=== PATIENT | female | born 1970 | race Caucasian/White ===

== ENCOUNTER 2017-01-15 17:17 | Emergency (ER) | payer OTHER ==
[~2017-01-15] VITALS: Ht 157.5 cm; Wt 63.5 kg
[2017-01-15 17:17] VITALS: BP_SYST 102
--- NOTE | 2017-01-15 17:17 | NUR ---
Patient triaged and placed in waiting room. VSS and patient appears in no acute distress at this time. Accompanied by FRIEND, awaiting available bed, and MD notified of need for MSE.
--- NOTE | 2017-01-15 18:40 | NUR ---
BROUGHT BACK TO BED #4 AND REPORT GIVEN TO BERNARDA
--- NOTE | 2017-01-15 18:50 | NUR ---
Patient to ER via triage with c/o left sided back pain, increasing in severity over the last several days. Patient denies any numbness/tingling or weakness of lower extremities. No incontinence reported. Patient reports that she was seen at an outside hospital([facility]) and was given given a steroid injection which patient reports did not help with the pain. Patient rates pain at 8/10-Awaiting evaluation by ER MD. Will continue to observe and assess.
--- NOTE | 2017-01-15 18:56 | NUR ---
DR BIRCH AT BEDSIDE FOR EVALUATION
[2017-01-15] MEDS ORDERED: KETOROLAC TROMETHAMINE 60 MG/2 ML VIAL IM ONE (19:00)
[2017-01-15 19:45] VITALS: BP_SYST 100
--- NOTE | 2017-01-15 19:45 | NUR ---
Patient given written and verbal discharge instructions and verbalizes understanding. ER MD discussed with patient the results and treatment provided. Patient in stable condition. ID arm band removed. Rx of Motrin, [place] given. Patient educated on pain management and to follow up with PMD. Pain Scale 3. Opportunity for questions provided and answered. Patient left ER ambulating without difficulty with slow, steady gait with friend at bedside. Patient is in nad. No adverse reaction noted to medication.
== END 2017-01-15 19:45 | disposition home or self-care (01) ==
LOC: SED 17:17
DX: M54.5 Low back pain (principal); E78.00 Pure hypercholesterolemia, unspecified; Z90.49 Acquired absence of other specified parts of digestive tract; Z90.710 Acquired absence of both cervix and uterus
CPT/HCPCS: 74000; 96372; 99283; J1885

== ENCOUNTER 2018-10-12 10:29 | Emergency (ER) | payer MEDICAID, OTHER ==
[~2018-10-12] VITALS: Ht 160 cm; Wt 59.0 kg
[2018-10-12 10:30] VITALS: BP_SYST 104
[2018-10-12] MEDS ORDERED: MAG HYDROX/AL HYDROX/SIMETH 30 ML, DICYCLOMINE HCL 20 MG, LIDOCAINE VISCOUS 2% 15ML (PO... PO ONE ×3 (11:00)
[2018-10-12 11:28] LABS: BASOPHILS % (AUTO) 0.3 % (0.0-2.0); EOSINOPHILS # (AUTO) 0.1 K/uL (0.0-0.4); EOSINOPHILS % (AUTO) 1.9 % (0.0-4.0); HEMATOCRIT 41.4 % (36-48); HEMOGLOBIN 14.3 g/dL (12.0-16.0); LYMPHOCYTES # (AUTO) 2.6 K/uL (1.0-5.5); LYMPHOCYTES % (AUTO) 49.7 % (20.5-51.5); MEAN CORPUSCULAR HEMOGLOBIN 33 pg (27-31); MEAN CORPUSCULAR HGB CONC 35 % (32-36); MEAN CORPUSCULAR VOLUME 97 fL (79.0-98.0); MONOCYTES # (AUTO) 0.3 K/uL (0.0-1.0); MONOCYTES % (AUTO) 6.2 % (1.7-9.3); NEUTROPHILS # (AUTO) 2.2 K/uL (1.8-7.7); NEUTROPHILS % (AUTO) 41.9 % (40.0-70.0); PLATELET COUNT (AUTO) 168 K/uL (130-430); RED BLOOD CELL COUNT(AUTO) 4.28 MIL/uL (4.2-6.2); RED CELL DISTRIBUTION WIDTH 13.4 % (9.0-15.0); WHITE BLOOD COUNT (AUTO) 5.2 K/uL (4.8-10.8)
[2018-10-12 12:08] LABS: CALCIUM 9.7 mg/dL (8.4-11.0); CREATININE 0.77 mg/dL (0.55-1.30); POTASSIUM 4.2 mmol/L (3.5-5.1)
[2018-10-12 12:13] LABS: TOTAL BILIRUBIN 0.3 mg/dL (0.0-1.0)
[2018-10-12] MEDS ORDERED: HYDROcodone/ACETAMIN 5-325 MG TAB (NORCO/ VICODIN) PO ONE (12:15)
[2018-10-12 12:54] VITALS: BP_SYST 115
== END 2018-10-12 12:54 | disposition home or self-care (01) ==
LOC: SED 10:29
DX: K52.9 Noninfective gastroenteritis and colitis, unspecified (principal); E78.5 Hyperlipidemia, unspecified; Z88.1 Allergy status to other antibiotic agents; Z90.49 Acquired absence of other specified parts of digestive tract
CPT/HCPCS: 36415; 80053; 81002; 81025; 83690; 85025; 99283; J2001

== ENCOUNTER 2019-11-02 20:06 | Emergency (ER) | payer MEDICAID ==
[~2019-11-02] VITALS: Ht 157.5 cm; Wt 56.7 kg
[2019-11-02 20:39] VITALS: BP_SYST 107
--- NOTE | 2019-11-02 20:39 | NUR ---
Patient triaged and placed in waiting room. VSS and patient appears in no acute distress at this time. Accompanied by boyfriend, awaiting available bed, and MD notified of need for MSE.
--- NOTE | 2019-11-02 22:43 | NUR ---
Patient to ER CHAIR for evaluation.
--- NOTE | 2019-11-02 22:45 | NUR ---
PATIENT COMPLAINING OF RIGHT ARM PAIN WITH POSSIBLE INSECT BITES X 4 DAYS . PAIN 10/10. REDNESS AND WARM NOTED AROUND BITES. NO OTHER COMPLAITS/INJURIES PER PATIENT OR NOTED.. WILL CONTINUE TO MONITOR.
--- NOTE | 2019-11-02 22:45 | NUR ---
ER at bedside examining patient.
[2019-11-02 23:09] VITALS: BP_SYST 110
--- NOTE | 2019-11-02 23:09 | NUR ---
Patient given written and verbal discharge instructions and verbalizes understanding. ER MD discussed with patient the results and treatment provided. Patient in stable condition. ID arm band removed. Rx of KEFLEX AND MOTRIN given. Patient educated on pain management and to follow up with PMD. Pain Scale 0/10 Opportunity for questions provided and answered.
== END 2019-11-02 23:09 | disposition home or self-care (01) ==
LOC: SED 20:06
DX: S40.861A Insect bite (nonvenomous) of right upper arm, initial encounter (principal); L08.9 Local infection of the skin and subcutaneous tissue, unspecified; J44.9 Chronic obstructive pulmonary disease, unspecified; E78.00 Pure hypercholesterolemia, unspecified; F17.210 Nicotine dependence, cigarettes, uncomplicated; Z71.6 Tobacco abuse counseling; W57.XXXA Bitten or stung by nonvenomous insect and other nonvenomous arthropods, initial encounter; Y93.89 Activity, other specified; Y92.89 Other specified places as the place of occurrence of the external cause; Y99.8 Other external cause status
CPT/HCPCS: 99283